=== PATIENT | male | born 1970 | race Caucasian/White ===

== ENCOUNTER 2016-11-25 22:46 | Emergency (ER) | payer OTHER ==
[2016-11-25 22:52] VITALS: O2SAT 96
[2016-11-25] MEDS ORDERED: IPRATROPIUM/ALBUTEROL 3 ML DEYVIAL IH ONE (23:42)
--- NOTE | 2016-11-25 23:42 | EDPHY ---
H & P Time Seen by Provider: 11/25/16 23:35 HPI/ROS: CHIEF COMPLAINT: Cough sinus congestion HISTORY OF PRESENT ILLNESS: This is a 46-year-old male presenting to the emergency department complaining of increased cough intermittent productive. Patient states he was sick with the flu a week ago along with his children, those symptoms seem to have resolved but increase in coughing with wheezing. History of asthma. Denies any shortness of breath, patient's did give him 30 mg of there Children's prednisone along with the use of their albuterol inhaler, patient states he did have some relief, but the coughing has increased this evening. REVIEW OF SYSTEMS: Constitutional: No fever, no chills. Eyes: No discharge. ENT: No sore throat. Sinus congestion Cardiovascular: No chest pain, no palpitations. Respiratory: Intermittent productive cough, wheezing. no shortness of breath. Musculoskeletal: No back pain. Skin: No rashes. Neurological: Intermittent headache with cough Smoking Status: Never smoked Physical Exam: General Appearance: Alert and no distress. HEENT: Pupils equal and round no injection. TM's normal bilat. oropharynx erythema no exudates. No lymphadenopathy noted Respiratory: Chest is nontender, lungs diffuse wheezing nonlabored respiratory effort Cardiac: regular rate and rhythm Musculoskeletal: Neck is supple and nontender. Extremities: full range of motion and are nontender. Skin: No rashes or lesions. Constitutional: Initial Vital Signs Temperature (C) 36.3 C 11/25/16 22:50 Heart Rate 65 11/25/16 22:50 Respiratory Rate 18 11/25/16 22:50 Blood Pressure 127/85 H 11/25/16 22:50 O2 Sat (%) 96 11/25/16 22:50 O2 Delivery Mode Room Air Allergies/Adverse Reactions: erythromycin base [Erythromycin Base] Allergy (Verified 11/25/16 23:37) Penicillins Allergy (Verified 11/25/16 23:37) Home Medications: Medication Instructions Recorded None 08/23/09 Albuterol 11/25/16 predniSONE 11/25/16 AZITHROMYCIN [Z-PACK] 250 mg PO DAILY #6 tab 11/26/16 Albuterol Sulfate [Proair Hfa] 8.5 gm IH Q4-6PRN PRN #0 [email or web address] 11/26/16 predniSONE 50 mg PO DAILY #5 tablet 11/26/16 Medical Decision Making ED Course/Re-evaluation: Discussed ED plan of care: Duo-neb, Prednisone 0035: The re-evaluation lungs clear bilaterally no wheezing noted, airway patent nonlabored respiratory effort. Patient states feeling somewhat better. Discussed discharge instructions---> stable, discharge home Differential Diagnosis: And other differential diagnosis considered but not limited to pneumonia, influenza and sinusitis - Data Points Medications Given: Discontinued Medications Albuterol/Ipratropium (Duoneb) 3 ml IH EDNOW ONE Stop: 11/25/16 23:43 Last Admin: 11/26/16 00:05 Dose: 3 ml Azithromycin (Zithromax) 500 mg PO EDNOW ONE PRN Reason: Protocol Stop: 11/26/16 00:33 Last Admin: 11/26/16 00:39 Dose: 500 mg Prednisone (Prednisone) 40 mg PO ONCE STA Stop: 11/25/16 23:43 Last Admin: 11/26/16 00:05 Dose: 40 mg Departure - Departure Disposition: Home, Routine, Self-Care Clinical Impression: Bronchitis Condition: Good Instructions: Acute Bronchitis (ED), Wheezing (ED), How Your Lungs Work (ED) Additional Instructions: Discussed discharge instructions 1. Take all medications prescribed 2. Use inhaler as prescribed 3. Humidified air may be beneficial. I would recommend no strenuous activity that requires an increased amount for oxygen until symptoms have resolved 4. You can also take Mucinex DM as needed this will help suppress the cough 5. Increase fluid intake, and rest Referrals: Georgina Thompson MD [Primary Care Provider] - As per Instructions Prescriptions: Albuterol Sulfate [Proair Hfa] 8.5 gm IH Q4-6PRN PRN #0 hfa.[email or web address] PRN Reason: Cough, Mild AZITHROMYCIN [Z-PACK] 250 mg PO DAILY #6 tab predniSONE 50 mg PO DAILY #5 tablet
[2016-11-26] MEDS: predniSONE 20 MG TAB PO STA ×2 (00:05)
[2016-11-26] MEDS ORDERED: AZITHROMYCIN 250 MG TAB PO ONE (00:32)
[2016-11-26 00:45] VITALS: BP 133/74; PULSE 88; RESP 16; TEMP 97.9
== END 2016-11-26 00:44 | disposition home or self-care (01) ==
DX: J20.9 Acute bronchitis, unspecified (principal)

== ENCOUNTER → 2016-12-19 | Outpatient (CLI) | payer OTHER | LOC: BMCIMAGING 14:55 | PROVIDERS: ATTEND Family Medicine | DX: Z98.890 Other specified postprocedural states (principal) ==